=== PATIENT | female | born 1950 | race Caucasian/White ===

== ENCOUNTER 2022-12-30 20:26 | Emergency (ER) | payer OTHER ==
[~2022-12-30] VITALS: Ht 162.6 cm; Wt 54.4 kg
[2022-12-30 20:48] VITALS: BP_SYST 138; PULSE 102; RESP 17; TEMP 97.7; O2SAT 98
[2022-12-31 01:53] VITALS: BP_SYST 113; PULSE 67; RESP 18; TEMP 98.2; O2SAT 97
== END 2022-12-31 01:53 | disposition home or self-care (01) ==
LOC: SED 20:26
DX: S01.111A Laceration without foreign body of right eyelid and periocular area, initial encounter (principal); S01.511A Laceration without foreign body of lip, initial encounter; S60.222A Contusion of left hand, initial encounter; S60.221A Contusion of right hand, initial encounter; Z88.1 Allergy status to other antibiotic agents; Z79.899 Other long term (current) drug therapy; W18.40XA Slipping, tripping and stumbling without falling, unspecified, initial encounter; Y93.89 Activity, other specified; Y92.89 Other specified places as the place of occurrence of the external cause; Y99.8 Other external cause status
CPT/HCPCS: 70450-TC; 72125-TC; 76376; 99284